=== PATIENT | female | born 1960 | race African-American/Black ===

== ENCOUNTER 2018-04-14 11:02 | Emergency (ER) | payer SELFPAY ==
[2018-04-14] MEDS ORDERED: Ketorolac Tromethamine 30 MG/ML VIAL ONE (11:41)
[2018-04-14 12:16] LABS: Bilirubin Negative (Negative); Blood, Urine Negative (Negative); Clarity CLEAR (Clear); Glucose, Urine (Dipstick) Negative (Negative); Leukocyte Negative (Negative); Nitrite Negative (Negative); Protein, Urine (Dipstick) Negative (Neg-Trace); Specific Gravity, Urine 1.023 (1.002-1.036); Urobilinogen 0.2 mg/dL (0.2-1.0); pH, Urine 6.5 (5.0-9.0)
[2018-04-14 12:19] LABS: #Basophils 0.1 thou/uL (0.0-0.2); #Eosinphils 0.2 thou/uL (0.0-0.7); #Lymphocytes 3.2 thou/uL (1.20-3.40); #Monocytes 0.3 thou/uL (0.11-0.59); #Neutrophils 3.8 thou/uL (1.40-6.50); %Basophils 1.2 % (0.0-1.0); %Eosinophils 2.5 % (0.0-10.0); %Lymphocytes 42.4 % (21.0-51.0); %Monocytes 3.8 % (0.0-10.0); %Neutrophils 50.1 % (42.0-75.0); Hemoglobin 14.4 g/dL (12.0-16.0); Mean Corpuscular HGB CONC 34.2 g/dL (32.0-36.0); Mean Corpuscular Hemoglobin 33.6 pg (27.0-31.0); Mean Corpuscular Volume 98.2 fL (78.0-98.0); Mean Platelet Volume 8.3 fL (7.4-10.4); Platelet Count 183 thou/uL (130-400); Red Blood Cell (RBC) Count 4.28 mill/uL (4.20-5.40); White Blood Cell (WBC) Count 7.5 thou/uL (4.8-10.8)
[2018-04-14 12:39] LABS: ALT (SGPT) 37 U/L (8-55); AST (SGOT) 36 U/L (5-34); Alkaline Phosphatase 106 U/L (40-150); Anion Gap 15 mmol/L (10-20); BUN (Urea Nitrogen) 16 mg/dL (9.8-20.1); Bilirubin, Total 0.3 mg/dL (0.2-1.2); Calc. Creatinine Clearance 0 mL/min (70-130); Calcium 9.3 mg/dL (7.8-10.44); Carbon Dioxide 20 mmol/L (22-29); Chloride 107 mmol/L (98-107); Estimated GFR-MDRD 86; Globulin 2.8 g/dL (2.4-3.5); Glucose 119 mg/dL (70-105); Lipase 17 U/L (8-78); Potassium 3.9 mmol/L (3.5-5.1); Protein, Total 6.8 g/dL (6.0-8.3); Sodium 138 mmol/L (136-145)
--- NOTE | 2018-04-14 13:32 | RAD ---
FRONTAL VIEW CHEST: Date: 04/14/18 COMPARISON: 10/31/16. INDICATION: Left chest pain. FINDINGS: There is no evidence of consolidation, effusion, or discrete pneumothorax. Cardiac silhouette is acce ntuated by portable technique. IMPRESSION: No focal consolidation. POS: [facility]
--- NOTE | 2018-04-14 14:10 | CT ---
NONCONTRAST CT ABDOMEN AND PELVIS: Date: 04/14/18 HISTORY: Left flank pain, right abdominal soreness for 3 days. COMPARISON: Prior noncontrasted CT abdomen and pelvis on 02/13/09, as well as prior postcontrast CT examinations on 06/29/11/ and 08/10/15. FINDINGS: Again noted is fatty infiltration of the liver. The echogenic mass-like structure within the posterio r aspect of the medial segment of the left hepatic lobe is again present and is seen on multiple prio r studies dating back to 2008 and is stable in appearance and likely attributable to area of fatty sp aring. There is linear scarring versus atelectasis at each lung base. Degenerative changes are again seen in the spine. There is pseudoarticulation of the left lateral mas s of L5 with S1. An approximately 2.0 mm nonobstructing inferior pole right renal calculus is identified. No additiona l renal calculus is seen and there is no evidence of a ureteral calculus. The exophytic hyperdense le griselda at the superior pole of the left kidney is again seen and similar in size to study in 2012, but is smaller in size compared to study in 2016. There is a small, stable, hypodense, too small to danial cterize, lesion within the medial aspect superior pole of left kidney with very tiny increased densit y lesion seen in the inferior pole left kidney. There is no hydronephrosis or perinephric fluid colle ction seen. The spleen, pancreas, bilateral adrenal glands, and decompressed urinary bladder demonstrate a grossl y normal nonenhanced CT appearance. A few scattered colonic diverticula are seen in the descending colon. A retrocecal appendix is visualized and normal in caliber. A few colonic diverticula are seen in the ascending colon. There is no free fluid, fluid collection, or lymphadenopathy seen on this nonenhanced CT scan examina tion. A tiny, fat-containing umbilical hernia is present. Vascular calcifications seen in the abdominal aorta involving the iliac arteries. IMPRESSION: 1. Nonobstructing 2.0 mm calculus inferior pole right kidney. No ureteral calculi are seen bilateral ly, and there is no hydronephrosis. 2. Stable Bosniak Type II renal cystic lesion superior pole left kidney with stable subcentimeter hy podense lesion in the medial aspect superior pole left kidney. 3. Fatty infiltration of the liver with mass-like area of fatty sparing in the posterior aspect left hepatic lobe, which has a stable appearance dating back to study in 2008. 4. No CT evidence of appendicitis. POS: [facility]
== END 2018-04-14 13:05 | disposition home or self-care (01) ==
LOC: ERS 11:02
DX: S29.011A Strain of muscle and tendon of front wall of thorax, initial encounter (principal); I10 Essential (primary) hypertension; E78.5 Hyperlipidemia, unspecified; I48.91 Unspecified atrial fibrillation; E11.9 Type 2 diabetes mellitus without complications; Z79.84 Long term (current) use of oral hypoglycemic drugs; F41.9 Anxiety disorder, unspecified; F17.210 Nicotine dependence, cigarettes, uncomplicated; Z79.82 Long term (current) use of aspirin; Z79.899 Other long term (current) drug therapy; X58.XXXA Exposure to other specified factors, initial encounter
CPT/HCPCS: 71045; 74176; 80053; 81003; 83690; 85025; 87086; 96372; J1885

== ENCOUNTER 2018-05-05 09:12 | Emergency (ER) | payer SELFPAY ==
[2018-05-05 11:09] LABS: #Basophils 0.1 thou/uL (0.0-0.2); #Eosinphils 0.2 thou/uL (0.0-0.7); #Monocytes 0.4 thou/uL (0.11-0.59); #Neutrophils 4.4 thou/uL (1.40-6.50); %Eosinophils 2.4 % (0.0-10.0); %Lymphocytes 37.3 % (21.0-51.0); %Monocytes 4.6 % (0.0-10.0); %Neutrophils 54.7 % (42.0-75.0); Hemoglobin 14.5 g/dL (12.0-16.0); Mean Corpuscular HGB CONC 32.3 g/dL (32.0-36.0); Mean Corpuscular Hemoglobin 32.7 pg (27.0-31.0); Mean Platelet Volume 8.6 fL (7.4-10.4); Platelet Count 184 thou/uL (130-400); RBC Distribution Width 12.2 % (11.5-14.5); Red Blood Cell (RBC) Count 4.42 mill/uL (4.20-5.40)
--- NOTE | 2018-05-05 11:34 | RAD ---
SINGLE VIEW OF THE CHEST: COMPARISON: 04/14/2018. HISTORY: Bilateral lower extremity. FINDINGS: Single view of the chest shows a normal sized cardiomediastinal silhouette. There is no evidence of c onsolidation, mass, or pleural effusion. Degenerative changes are seen in the spine. IMPRESSION: No evidence of acute cardiopulmonary disease. POS: [facility]
[2018-05-05 11:40] LABS: ALT (SGPT) 34 U/L (8-55); AST (SGOT) 35 U/L (5-34); Albumin 4.2 g/dL (3.5-5.0); Alkaline Phosphatase 102 U/L (40-150); Anion Gap 11 mmol/L (10-20); BUN (Urea Nitrogen) 11 mg/dL (9.8-20.1); Bilirubin, Total 0.4 mg/dL (0.2-1.2); Calc. Creatinine Clearance 0 mL/min (70-130); Calcium 9.5 mg/dL (7.8-10.44); Carbon Dioxide 30 mmol/L (22-29); Chloride 104 mmol/L (98-107); Estimated GFR-MDRD Greater than 90; Globulin 3.1 g/dL (2.4-3.5); Glucose 110 mg/dL (70-105); Protein, Total 7.3 g/dL (6.0-8.3); Sodium 141 mmol/L (136-145)
--- NOTE | 2018-05-05 12:48 | ULT ---
BILATERAL LOWER EXTREMITY VENOUS ULTRASOUND: HISTORY: Bilateral lower extremity pain and edema. TECHNIQUE: Multiplanar, daniels scale, and color Doppler images were obtained in a bilateral lower extremity venous ultrasound. Spectral analysis of the Doppler waveforms was performed. FINDINGS: The bilateral common femoral veins, profunda femoral veins, superficial femoral veins, and popliteal veins are normal in appearance without visible thrombus. These vessels demonstrate normal compressio n, flow, and augmentation. The posterior tibial veins and greater saphenous veins are also patent. IMPRESSION: No evidence of deep vein thrombosis. POS: [facility]
== END 2018-05-05 13:01 | disposition home or self-care (01) ==
LOC: ERS 09:12
DX: R60.0 Localized edema (principal); I10 Essential (primary) hypertension; I48.91 Unspecified atrial fibrillation; E11.9 Type 2 diabetes mellitus without complications; F41.9 Anxiety disorder, unspecified; F31.9 Bipolar disorder, unspecified; F17.210 Nicotine dependence, cigarettes, uncomplicated; E78.5 Hyperlipidemia, unspecified
CPT/HCPCS: 36415; 71045; 80053; 83880; 85025; 93005; 93970

== ENCOUNTER 2018-12-23 13:47 | Emergency (ER) | payer SELFPAY ==
[2018-12-23 14:26] LABS: #Basophils 0.1 thou/uL (0.0-0.2); #Eosinphils 0.1 thou/uL (0.0-0.7); #Lymphocytes 2.5 thou/uL (1.20-3.40); #Monocytes 0.4 thou/uL (0.11-0.59); #Neutrophils 5.3 thou/uL (1.40-6.50); %Basophils 0.8 % (0.0-1.0); %Eosinophils 1.6 % (0.0-10.0); %Monocytes 4.3 % (0.0-10.0); %Neutrophils 63.4 % (42.0-75.0); Hemoglobin 14.4 g/dL (12.0-16.0); Mean Corpuscular HGB CONC 33.8 g/dL (32.0-36.0); Mean Corpuscular Hemoglobin 33.1 pg (27.0-31.0); Mean Platelet Volume 8.7 fL (7.4-10.4); Platelet Count 182 thou/uL (130-400); RBC Distribution Width 12.1 % (11.5-14.5); Red Blood Cell (RBC) Count 4.34 mill/uL (4.20-5.40); White Blood Cell (WBC) Count 8.3 thou/uL (4.8-10.8)
--- NOTE | 2018-12-23 14:28 | RAD ---
XR Chest 1 View Portable History: Chest pain Comparison: Radiograph May 05, 2018 Findings: Lungs are clear. No pneumothorax or effusion. Cardiac silhouette and mediastinal contours a re within normal limits. No acute osseous abnormality. Impression: No acute intrathoracic abnormality.
[2018-12-23 14:50] LABS: ALT (SGPT) 50 U/L (8-55); AST (SGOT) 87 U/L (5-34); Albumin 4.3 g/dL (3.5-5.0); Alkaline Phosphatase 101 U/L (40-110); Anion Gap 13 mmol/L (10-20); BUN (Urea Nitrogen) 21 mg/dL (9.8-20.1); Bilirubin, Total 0.5 mg/dL (0.2-1.2); Calc. Creatinine Clearance 0 mL/min (70-130); Calcium 9.1 mg/dL (7.8-10.44); Carbon Dioxide 20 mmol/L (22-29); Chloride 107 mmol/L (98-107); Estimated GFR-MDRD 87; Globulin 2.5 g/dL (2.4-3.5); Glucose 216 mg/dL (70-105); Lipase 21 U/L (8-78); Potassium 4.1 mmol/L (3.5-5.1); Protein, Total 6.8 g/dL (6.0-8.3); Sodium 136 mmol/L (136-145)
== END 2018-12-23 16:25 | disposition left against medical advice (07) ==
LOC: ERS 13:47
DX: R07.2 Precordial pain (principal); E78.5 Hyperlipidemia, unspecified; I10 Essential (primary) hypertension; I49.9 Cardiac arrhythmia, unspecified; I48.91 Unspecified atrial fibrillation; E11.9 Type 2 diabetes mellitus without complications; Z79.4 Long term (current) use of insulin; F31.9 Bipolar disorder, unspecified; F41.9 Anxiety disorder, unspecified; F17.210 Nicotine dependence, cigarettes, uncomplicated
CPT/HCPCS: 36415; 71045; 80053; 82550; 83690; 84484; 85025; 93005

== ENCOUNTER 2019-11-18 14:39 | Emergency (ER) | payer SELFPAY ==
[2019-11-18 15:05] LABS: #Basophils 0.1 thou/uL (0.0-0.2); #Eosinphils 0.2 thou/uL (0.0-0.7); #Lymphocytes 3.6 thou/uL (1.20-3.40); #Monocytes 0.4 thou/uL (0.11-0.59); #Neutrophils 5.1 thou/uL (1.40-6.50); %Basophils 1.1 % (0.0-1.0); %Eosinophils 1.7 % (0.0-10.0); %Lymphocytes 38.2 % (21.0-51.0); %Monocytes 4.2 % (0.0-10.0); %Neutrophils 54.7 % (42.0-75.0); Hemoglobin 14.1 g/dL (12.0-16.0); Mean Corpuscular HGB CONC 34.3 g/dL (32.0-36.0); Mean Platelet Volume 8.5 fL (7.4-10.4); Platelet Count 168 thou/uL (130-400); RBC Distribution Width 11.8 % (11.5-14.5); Red Blood Cell (RBC) Count 4.04 mill/uL (4.20-5.40); White Blood Cell (WBC) Count 9.4 thou/uL (4.8-10.8)
--- NOTE | 2019-11-18 15:14 | RAD ---
Chest 2 views: 11/18/2019 COMPARISON: 12/23/2018 HISTORY: Chest pain for 6 weeks FINDINGS: No pneumothorax or pleural fluid. No focal consolidation or alveolar edema. Heart and media stinal contours are stable. Stable multilevel thoracic spine degenerative change. IMPRESSION: No acute findings-stable appearance of the chest.
[2019-11-18 15:32] LABS: ALT (SGPT) 22 U/L (8-55); AST (SGOT) 21 U/L (5-34); Albumin 4.1 g/dL (3.5-5.0); Alkaline Phosphatase 88 U/L (40-110); Anion Gap 13 mmol/L (10-20); BUN (Urea Nitrogen) 28 mg/dL (9.8-20.1); Bilirubin, Total 0.3 mg/dL (0.2-1.2); Calc. Creatinine Clearance 0 mL/min (70-130); Calcium 8.9 mg/dL (7.8-10.44); Carbon Dioxide 22 mmol/L (22-29); Chloride 109 mmol/L (98-107); Estimated GFR-MDRD 64; Globulin 2.3 g/dL (2.4-3.5); Glucose 107 mg/dL (70-105); Potassium 3.9 mmol/L (3.5-5.1); Protein, Total 6.4 g/dL (6.0-8.3); Sodium 140 mmol/L (136-145)
[2019-11-18 19:08] LABS: Troponin I Less than 0.010 ng/mL (< 0.028)
== END 2019-11-18 20:00 | disposition home or self-care (01) ==
LOC: ERS 14:39
DX: R07.89 Other chest pain (principal); E78.5 Hyperlipidemia, unspecified; I10 Essential (primary) hypertension; I48.91 Unspecified atrial fibrillation; E11.9 Type 2 diabetes mellitus without complications; I49.3 Ventricular premature depolarization; F41.9 Anxiety disorder, unspecified; F17.210 Nicotine dependence, cigarettes, uncomplicated; Z79.84 Long term (current) use of oral hypoglycemic drugs
CPT/HCPCS: 36415; 71046; 80053; 84484; 85025; 93005

== ENCOUNTER 2020-03-03 14:33 | Observation (INO) | payer SELFPAY ==
[~2020-03-03 14:33] MED LIST: Iopamidol-370 76% 500 ML 1 ML ONE
--- NOTE | 2020-03-03 15:40 | RAD ---
Chest one view HISTORY: Cough. COMPARISON: 11/18/2019. FINDINGS: Cardiac silhouette and pulmonary vasculature are unremarkable. Mediastinum is midline. No confluent airspace consolidation or evidence of pneumothorax. Degenerative changes of the shoulders. IMPRESSION : No acute abnormalities are demonstrated.
[2020-03-03] MEDS ORDERED: Ketorolac Tromethamine 30 MG/ML VIAL ONE (15:48)
[2020-03-03] MEDS ORDERED: Morphine 4 MG/ML VIAL ONE (15:48)
[2020-03-03] MEDS ORDERED: Aspirin Chewable 81 MG TAB ONE (15:48)
[2020-03-03 16:17] LABS: #Basophils 0.1 thou/uL (0.0-0.2); #Eosinphils 0.5 thou/uL (0.0-0.7); #Lymphocytes 3.7 thou/uL (1.20-3.40); #Monocytes 0.3 thou/uL (0.11-0.59); #Neutrophils 4.1 thou/uL (1.40-6.50); %Basophils 1.6 % (0.0-1.0); %Eosinophils 5.5 % (0.0-10.0); %Lymphocytes 42.4 % (21.0-51.0); %Monocytes 3.8 % (0.0-10.0); %Neutrophils 46.8 % (42.0-75.0); Hemoglobin 15.1 g/dL (12.0-16.0); Mean Corpuscular HGB CONC 33.9 g/dL (32.0-36.0); Mean Corpuscular Hemoglobin 34.8 pg (27.0-31.0); Mean Platelet Volume 8.8 fL (7.4-10.4); Platelet Count 151 thou/uL (130-400); RBC Distribution Width 11.6 % (11.5-14.5); Red Blood Cell (RBC) Count 4.34 mill/uL (4.20-5.40); White Blood Cell (WBC) Count 8.8 thou/uL (4.8-10.8)
[2020-03-03 16:40] LABS: ALT (SGPT) 14 U/L (8-55); AST (SGOT) 16 U/L (5-34); Albumin 4.3 g/dL (3.5-5.0); Alkaline Phosphatase 90 U/L (40-110); Anion Gap 11 mmol/L (10-20); BUN (Urea Nitrogen) 21 mg/dL (9.8-20.1); Bilirubin, Total 0.2 mg/dL (0.2-1.2); Calc. Creatinine Clearance 0 mL/min (70-130); Carbon Dioxide 26 mmol/L (22-29); Chloride 105 mmol/L (98-107); Globulin 2.9 g/dL (2.4-3.5); Glucose 93 mg/dL (70-105); Lipase 19 U/L (8-78); Magnesium 1.9 mg/dL (1.6-2.6); Protein, Total 7.2 g/dL (6.0-8.3); Sodium 138 mmol/L (136-145)
[2020-03-03 16:40] LABS: Bilirubin Negative (Negative); Blood, Urine Negative (Negative); Clarity Clear (Clear); Glucose, Urine (Dipstick) Normal (Negative); Ketone, Urine Negative (Negative); Leukocyte Negative Leu/uL (Negative); Nitrite Negative (Negative); Protein, Urine (Dipstick) Negative (Neg-Trace); Specific Gravity, Urine 1.021 (1.002-1.036); Urobilinogen Normal mg/dL (Less than 2); pH, Urine 7.5 (5.0-9.0)
--- NOTE | 2020-03-03 18:15 | CT ---
CT PULMONARY ANGIOGRAM WITH IV CONTRAST AND 3D MIP RECONSTRUCTIONS: 03/03/20 PROVIDED CLINICAL HISTORY: Chest pain. FINDINGS: There is no evidence for central or segmental pulmonary embolus. The lungs are free of significant op acity. No pleural fluid or pneumothorax apparent. Visualized portions of the upper abdomen demonstrat e no acute abnormality. The osseous structures demonstrate no concerning lytic or blastic lesions. IMPRESSION: No evidence for central or segmental pulmonary embolus. POS: [facility]
[2020-03-03] MEDS ORDERED: HumaLOG 300 UNITS/3 ML VIAL SC PRN ×2 (19:08)
[2020-03-03] MEDS ORDERED: Acetaminophen 500 MG TAB PO PRN (19:08)
[2020-03-03] MEDS ORDERED: Cepastat Lozenges 1 LOZ PO PRN (19:08)
[2020-03-03] MEDS ORDERED: Diabetic Tussin 200 MG/10 ML UDCUP PO PRN (19:08)
[2020-03-03] MEDS ORDERED: Dextrose 5% in Water 1,000 ML IV PRN (19:08)
[2020-03-03] MEDS ORDERED: Melatonin 3 MG TAB PO PRN (19:08)
[2020-03-03] MEDS ORDERED: Dextrose 50% Abboject 50 ML SYRINGE SLOW IVP PRN (19:08)
[2020-03-03] MEDS ORDERED: Sodium Chloride 0.9% 1,000 ML IV SCH (19:15)
[2020-03-03 19:32] LABS: SARS-CoV-2 NAA Rapid Test Not Detected (NotDetected)
[2020-03-03 19:33] LABS: Troponin I Less than 0.010 ng/mL (< 0.028)
--- NOTE | 2020-03-03 20:41 | PDOC.HHP ---
Hospitalist HPI - History of Present Illness History of Present Illness: ADMISSION DATE: 03/03/2020 TIME OF ASSESSMENT: 1814 PRIMARY CARE PHYSICIAN:Felton CHIEF COMPLAINT: Chest pain HPI: Patient is a 60-year-old female with past medical history significant for hyperlipidemia, hypertension, diabetes mellitus type 2. She presents to the ED today for an ongoing cough and chest pain. She is requesting a Covid swab. She states she has had chest pain midsternal for approximately 4 months now. There is also a related soreness around the area for the past 2 weeks. She states she has had a productive cough for at least a month now. The sputum is clear when she is coughing it up. Denies fever, denies sick contacts. She states that she was seen in the ER for this chest pain in the past but they were unable to tell her what it was and it has been consistent since that time. She does have a history of an abnormal stress test 6 years ago and a normal heart cath 2 years ago. She states that sometimes shortness of breath and nausea will accompany the chest pain but no diaphoresis. Patient denies orthopnea, lightheadedness, edema. ED COURSE: Vital Signs: Blood pressure 110/71, pulse 70, respiratory rate 17, temp 97.6 oral, O2 saturation 100% on room air Patient had EKG, CTA of the chest, chest x-ray, lab work completed in the ER. She was administered 1 L normal saline, Toradol 15 mg IV, morphine 4 mg IV, aspirin 324 mg p.o. PAST MEDICAL HISTORY: Hypertension, hyperlipidemia, diabetes mellitus type 2, anxiety PAST SURGICAL HISTORY: Hysterectomy SOCIAL HISTORY: Patient lives at home with her . She drinks alcohol rarely and denies drug use. She is a pack per day smoker. FAMILY HISTORY: CVA, hypertension, stroke ALLERGIES: No known drug allergies CURRENT MEDICATIONS: Patient unable to recall, will have her son send her med list Hospitalist ROS - Review of Systems Constitutional: reports: other (body aches) Respiratory: reports: cough, sputum (clear) Cardiovascular: reports: chest pain All other systems reviewed; all pertinent +/- noted in HPI/Subj - Exam General Appearance: NAD, awake alert Eye: PERRL ENT: normocephalic atraumatic Neck: supple Heart: RRR, no murmur, no gallops, no rubs, normal peripheral pulses Heart - other findings: very tender to palpation over sternum Respiratory: CTAB, no wheezes, no rales, no ronchi, normal chest expansion Gastrointestinal: soft, non-tender, non-distended, normal bowel sounds Extremities: no cyanosis, no clubbing, no edema Skin: no rashes Neurological: cranial nerve grossly intact Musculoskeletal: normal tone, no muscle wasting Psychiatric: normal affect, normal behavior, A&O x 3 Hospitalist Results - Labs Result Diagrams: 03/03/20 16:04 03/03/20 16:04 Lab results: WBC 8.8 thou/uL (4.8-10.8) 03/03/20 16:04 Hgb 15.1 g/dL (12.0-16.0) 03/03/20 16:04 Hct 44.5 % (36.0-47.0) 03/03/20 16:04 MCV 103.0 fL (78.0-98.0) H 03/03/20 16:04 Plt Count 151 thou/uL (130-400) 03/03/20 16:04 Neutrophils % 46.8 % (42.0-75.0) 03/03/20 16:04 Sodium 138 mmol/L (136-145) 03/03/20 16:04 Potassium 4.0 mmol/L (3.5-5.1) 03/03/20 16:04 Chloride 105 mmol/L (98-107) 03/03/20 16:04 Carbon Dioxide 26 mmol/L (22-29) 03/03/20 16:04 BUN 21 mg/dL (9.8-20.1) H 03/03/20 16:04 Creatinine 1.22 mg/dL (0.6-1.1) H 03/03/20 16:04 Glucose 93 mg/dL (70-105) 03/03/20 16:04 Calcium 9.0 mg/dL (7.8-10.44) 03/03/20 16:04 Total Bilirubin 0.2 mg/dL (0.2-1.2) 03/03/20 16:04 AST 16 U/L (5-34) 03/03/20 16:04 ALT 14 U/L (8-55) 03/03/20 16:04 Alkaline Phosphatase 90 U/L (40-110) 03/03/20 16:04 Troponin I Less than 0.010 ng/mL (< 0.028) 03/03/20 18:59 Serum Total Protein 7.2 g/dL (6.0-8.3) 03/03/20 16:04 Albumin 4.3 g/dL (3.5-5.0) 03/03/20 16:04 Lipase 19 U/L (8-78) 03/03/20 16:04 Urine Ketones Negative mg/dL (Negative) 03/03/20 16:20 Urine Blood Negative (Negative) 03/03/20 16:20 Urine Nitrite Negative (Negative) 03/03/20 16:20 Ur Leukocyte Esterase Negative Karina/uL (Negative) 03/03/20 16:20 - EKG Interpretation EKG: Sinus rhythm 72 bpm No ectopic beats - Radiology Interpretation CT scan - chest Status: report reviewed by me Additional Comment: IMPRESSION: No evidence for central or segmental pulmonary embolus. Chest x-ray Status: image reviewed by me, report reviewed by me Additional Comment: IMPRESSION : No acute abnormalities are demonstrated. Hospitalist H&P A/P - Plan Plan: Chest pain rule out ACS Monitor on telemetry Continue to trend troponins Cardiac stress test in a.m. As needed analgesics available FLP, TSH, and magnesium in a.m. Cough Await Covid swab As needed antitussives available Acute kidney injury Continue IV fluids Recheck labs in a.m. Hypertension Vital signs every 4 hours Restart home medications once reconciled Diabetes mellitus type 2 Monitor Accu-Cheks AC at bedtime Mild sliding scale insulin VTE prophylaxis in place with SCDs CODE STATUS: Full Surrogate decision-maker is her children Patient has been discussed with Dr. Rankin
[2020-03-03] MEDS: Ketorolac Tromethamine 30 MG/ML VIAL IVP PRN (21:42)
[2020-03-03 22:40] LABS: Troponin I Less than 0.010 ng/mL (< 0.028)
[2020-03-04] MEDS: Morphine 2 MG/ML VIAL SLOW IVP PRN ×2 (00:08→08:42)
[2020-03-04 00:12] VITALS: BMI 34.0
[2020-03-04] MEDS: Ketorolac Tromethamine 30 MG/ML VIAL IVP PRN (04:29)
[2020-03-04 04:39] LABS: #Basophils 0.1 thou/uL (0.0-0.2); #Eosinphils 0.4 thou/uL (0.0-0.7); #Lymphocytes 3.6 thou/uL (1.20-3.40); #Monocytes 0.5 thou/uL (0.11-0.59); #Neutrophils 3.7 thou/uL (1.40-6.50); %Basophils 1.1 % (0.0-1.0); %Eosinophils 5.3 % (0.0-10.0); %Lymphocytes 43.3 % (21.0-51.0); %Monocytes 5.6 % (0.0-10.0); %Neutrophils 44.7 % (42.0-75.0); Hemoglobin 13.6 g/dL (12.0-16.0); Mean Corpuscular HGB CONC 34.5 g/dL (32.0-36.0); Mean Corpuscular Hemoglobin 34.9 pg (27.0-31.0); Mean Platelet Volume 9.7 fL (7.4-10.4); Platelet Count 130 thou/uL (130-400); RBC Distribution Width 11.6 % (11.5-14.5); Red Blood Cell (RBC) Count 3.89 mill/uL (4.20-5.40); White Blood Cell (WBC) Count 8.4 thou/uL (4.8-10.8)
[2020-03-04 04:40] LABS: Anion Gap 12 mmol/L (10-20); BUN (Urea Nitrogen) 29 mg/dL (9.8-20.1); Calc. Creatinine Clearance 81 mL/min (70-130); Calcium 8.5 mg/dL (7.8-10.44); Carbon Dioxide 22 mmol/L (22-29); Cardiac Risk 2.5 (Less than 4.5); Chloride 112 mmol/L (98-107); Cholesterol 125 mg/dl (< 200 Desired); Glucose 90 mg/dL (70-105); HDL Cholesterol 51 mg/dL (>60 Neg Risk); LDL Cholesterol, Calculated 60 mg/dL; Magnesium 2.1 mg/dL (1.6-2.6); Potassium 4.2 mmol/L (3.5-5.1); Sodium 142 mmol/L (136-145); Triglycerides 69 mg/dL (Less than 150)
[2020-03-04] MEDS ORDERED: Aspirin 325 mg Enteric Coated Tablet PO SCH (09:00)
--- NOTE | 2020-03-04 11:16 | NM ---
Radionucleotide stress only myocardial perfusion scan with CT attenuation correction and SPECT imagin g Left ventricular wall motion evaluation and ejection fraction HISTORY: Chest pain. FINDINGS: Lexiscan protocol. Homogeneous uptake of radiotracer throughout the left ventricular myocar dium. No focal perfusion defect. QGS analysis of gated SPECT images shows no focal wall motion abnormalities. Ejection fraction calcul ated at 58%. IMPRESSION : No evidence of ischemia. Normal LVEF.
[2020-03-04] MEDS ORDERED: Regadenoson 0.4 MG/5 ML SYRINGE ONE (12:38)
[2020-03-04 13:44] VITALS: BP 121/70; TEMP 98.1
--- NOTE | 2020-03-05 18:34 | PDOC.DS.DS ---
Provider - Provider Date of Admission: 03/03/20 17:41 Date of Discharge: 03/04/20 Admitting Provider: Celso Rankin MD Primary Care Physician: Americo Ya MD Course - Hospital Course Hospital Course: This patient is a 52-year-old female who presented to the hospital reporting chest pain. Patient had a history of prior presentations for chest pain. In the past she had had a heart cath some years prior only showing some nonocclusive disease in the distal LAD. She also had a subsequent stress test which showed some fixed defects in the left ventricle but nothing reversible. On this occasion the patient had chest pain that she described as being located in the lower sternal area near the xiphoid. It was very tender to touch. She reported the pain would radiate around her ribs with attempts at movement. She said this had actually been present for several months but she had not discussed it with her PCP at their last visit although it was present at that time. In the emergency department the patient had a negative chest x-ray and negative CTA of the chest. Cardiac enzymes were negative. EKG was nonischemic. Patient was placed in observation. She had telemetry and serial troponins which were all unremarkable. She subsequently underwent a nuclear medicine stress test which was also negative for any reversible ischemia and revealed a normal ejection fraction. On her exam she was very tender to palpation in her area of pain. It was felt that this was more musculoskeletal in nature and she would benefit from some anti-inflammatories. Discussed short-term prednisone for about 3 days and then conversion over to meloxicam. Patient was very amenable to that plan. Resuscitation Status: 03/03/20 19:08 Resuscitation Status Routine Co-Sign Provider: Resuscitation Status: FULL: Full Resuscitation Discussed with: pt - Labs Lab Results: 03/04/20 04:01 03/04/20 04:01 Abnormal Lab Results - Last 48 hrs 03/04/20 04:01: Chloride 112 H, BUN 29 H, Creatinine 1.11 H 03/04/20 04:01: RBC 3.89 L, MCV 101.0 H, MCH 34.9 H, Basophils % 1.1 H, Lymphocytes # 3.6 H - Physical Exam Vitals: Weight Admit Weight 204 lb 9.6 oz Weight 204 lb 9.6 oz Physical Exam: The patient was seen and examined on the day of discharge. Problem - Problem (1) Chest pain Code(s): R07.9 - CHEST PAIN, UNSPECIFIED Status: Acute (2) DM type 2 (diabetes mellitus, type 2) Status: Chronic Qualifiers: Diabetes mellitus technician terminal and repeater insulin use: without technician terminal and repeater use Diabetes mellitus complication status: with unspecified complications (3) Dyslipidemia Code(s): E78.5 - HYPERLIPIDEMIA, UNSPECIFIED Status: Chronic (4) HTN (hypertension) Code(s): I10 - ESSENTIAL (PRIMARY) HYPERTENSION Status: Chronic Qualifiers: Hypertension type: essential hypertension Qualified Code(s): I10 - Essential (primary) hypertension (5) Obesity Code(s): E66.9 - OBESITY, UNSPECIFIED Status: Chronic Qualifiers: Obesity classification: adult class 3 (BMI >= 40) Body mass index: BMI 40.0-44.9 Plan - Discharge Medications Prescriptions: Meloxicam 15 mg PO DAILY #10 tab predniSONE 20 mg PO QA- #3 tab Home Medications: Medication Instructions Recorded Confirmed Type Simvastatin [Zocor] 20 mg PO HS 05/02/13 03/04/20 History Pantoprazole [Protonix] 40 mg PO DAILY #0 tab 08/11/15 03/04/20 Rx Aspirin [Aspirin EC] 81 mg PO DAILY 03/04/20 03/04/20 History BuPROPion XL [Wellbutrin XL] 1 tab PO QAM 03/04/20 03/04/20 History Cyclobenzaprine [Flexeril] 10 mg PO TID 03/04/20 03/04/20 History Lisinopril [Zestril] 10 mg PO DAILY 03/04/20 03/04/20 History Lurasidone HCl [Latuda] 20 mg PO QPM 03/04/20 03/04/20 History Meloxicam 15 mg PO DAILY #10 tab 03/04/20 Rx Mv-Mn/C/Glutamin/Lysin/[id number] 1 tablet PO DAILY 03/04/20 03/04/20 History [Airborne Gummies] PARoxetine HCl [Paroxetine HCl] 20 mg PO QAM 03/04/20 03/04/20 History Topiramate 100 mg PO QPM 03/04/20 03/04/20 History metFORMIN HCl 1,000 mg PO BID-WM 03/04/20 03/04/20 History predniSONE 20 mg PO QAM-WM #3 tab 03/04/20 Rx traZODone HCl [Trazodone HCl] 1.5 tab PO QPM 03/04/20 03/04/20 History Allergies: No Known Drug Allergies Allergy (Verified 05/02/13 16:55) PER ER REPORT - Discharge Instructions Activity:: Activity as Tolerated Nourishment:: No Restrictions - Follow up Plan Referrals: Americo Ya MD [Primary Care Provider] - 7 Days (Call your primary doctor's office for followup within 7 days) Disposition: HOME Quality - Care Measures CORE MEASURES:: N/A
== END 2020-03-04 15:11 | disposition home or self-care (01) ==
LOC: ERS 14:33 → 2NO 17:41
PROVIDERS: ADMIT Internal Medicine; ATTEND Internal Medicine
DX: R07.2 Precordial pain (principal); E11.9 Type 2 diabetes mellitus without complications; E78.5 Hyperlipidemia, unspecified; I10 Essential (primary) hypertension; F41.9 Anxiety disorder, unspecified; F17.210 Nicotine dependence, cigarettes, uncomplicated; N17.9 Acute kidney failure, unspecified; I48.91 Unspecified atrial fibrillation; E66.9 Obesity, unspecified; Z68.34 Body mass index [BMI] 34.0-34.9, adult; Z79.82 Long term (current) use of aspirin; Z79.84 Long term (current) use of oral hypoglycemic drugs; Z79.899 Other long term (current) drug therapy; Z20.822 Contact with and (suspected) exposure to COVID-19
CPT/HCPCS: 0240U; 36415; 36416; 71045; 71275; 78452; 80048; 80053; 80061; 81003; 83690; 83735; 84443; 84484; 85025; 85379; 93005; 93017; 94760; 96374; 96375; 96376; A9500; G0378; J1885; J2270; J2785; Q9967

== ENCOUNTER 2021-07-29 11:13 | Outpatient (CLI) | payer BC | END 2021-07-29 11:14 | disposition home or self-care (01) | LOC: BICMAMMO 11:13 | PROVIDERS: ATTEND Family Medicine | DX: Z12.31 Encounter for screening mammogram for malignant neoplasm of breast (principal); J44.9 Chronic obstructive pulmonary disease, unspecified | CPT/HCPCS: 71046; 77063; 77067 ==

== ENCOUNTER 2022-02-15 11:03 | Emergency (ER) | payer BC, MEDICARE ==
[2022-02-15 12:16] LABS: Bilirubin Negative (Negative); Blood, Urine Negative (Negative); Clarity Clear (Clear); Glucose, Urine (Dipstick) Normal (Negative); Ketone, Urine Negative (Negative); Leukocyte Negative Leu/uL (Negative); Nitrite Negative (Negative); Protein, Urine (Dipstick) Negative (Neg-Trace); Specific Gravity, Urine 1.015 (1.002-1.036); Urobilinogen Normal mg/dL (Less than 2); pH, Urine 5.5 (5.0-9.0)
[2022-02-15 12:32] LABS: SARS-CoV-2 NAA Rapid Test Not Detected (NotDetected)
[2022-02-15] MEDS ORDERED: methylPREDNISolone Sod Succ/PF 125 MG/2 ML VIAL ONE (12:34)
[2022-02-15 12:47] LABS: ALT (SGPT) 36 U/L (8-55); AST (SGOT) 66 U/L (5-34); Albumin 4.1 g/dL (3.5-5.0); Alkaline Phosphatase 96 U/L (40-110); Anion Gap 15 mmol/L (10-20); BUN (Urea Nitrogen) 21 mg/dL (9.8-20.1); Bilirubin, Total 0.4 mg/dL (0.2-1.2); Calc. Creatinine Clearance 0 mL/min (70-130); Calcium 8.9 mg/dL (7.8-10.44); Carbon Dioxide 22 mmol/L (22-29); Estimated GFR 48; Globulin 2.6 g/dL (2.4-3.5); Glucose 125 mg/dL (70-105); Potassium 4.1 mmol/L (3.5-5.1); Protein, Total 6.7 g/dL (6.0-8.3); Sodium 136 mmol/L (136-145)
[2022-02-15 12:48] LABS: Chloride 103 mmol/L (98-107)
[2022-02-15 13:04] LABS: #Eosinphils 0.1 thou/uL (0.0-0.7); #Lymphocytes 0.6 thou/uL (1.20-3.40); #Monocytes 0.5 thou/uL (0.11-0.59); #Neutrophils 4.2 thou/uL (1.40-6.50); %Basophils 0.4 % (0.0-1.0); %Lymphocytes 11.9 % (21.0-51.0); %Monocytes 8.9 % (0.0-10.0); %Neutrophils 76.9 % (42.0-75.0); Hemoglobin 14.1 g/dL (12.0-16.0); MDiff Complete? YES; Mean Corpuscular HGB CONC 34.7 g/dL (32.0-36.0); Mean Corpuscular Hemoglobin 36.3 pg (27.0-31.0); Mean Platelet Volume 8.7 fL (7.4-10.4); Platelet Count 118 10x3/uL (130-400); Platelet Morphology Comment Appears Decreased; RBC Morphology Normal; Small Platelets SLIGHT; White Blood Cell (WBC) Count 5.4 10x3/uL (4.8-10.8)
== END 2022-02-15 13:33 | disposition home or self-care (01) ==
LOC: ERS 11:03
DX: J44.1 Chronic obstructive pulmonary disease with (acute) exacerbation (principal); E11.9 Type 2 diabetes mellitus without complications; I10 Essential (primary) hypertension; E78.5 Hyperlipidemia, unspecified; Z79.84 Long term (current) use of oral hypoglycemic drugs; Z20.822 Contact with and (suspected) exposure to COVID-19
CPT/HCPCS: 36415; 70450; 71045; 80053; 81003; 83605; 85025; 87040; 93005; 94760; 96374; J2930

== ENCOUNTER 2022-02-21 16:39 | Emergency (ER) | payer BC, MEDICARE ==
[2022-02-21] MEDS ORDERED: Acetaminophen 500 MG TAB ONE (17:48)
[2022-02-21 18:10] LABS: Mean Corpuscular HGB CONC 34.8 g/dL (32.0-36.0); Mean Corpuscular Hemoglobin 36.8 pg (27.0-31.0); Mean Platelet Volume 8.5 fL (7.4-10.4); Platelet Count 138 10x3/uL (130-400); Red Blood Cell (RBC) Count 4.09 mill/uL (4.20-5.40); White Blood Cell (WBC) Count 9.7 10x3/uL (4.8-10.8)
[2022-02-21 18:32] LABS: Band 2 % (5-11); Eosinophils 1 % (0-10); Lymphocytes 42 % (21-51); MDiff Complete? YES; Macrocytosis SLIGHT = 6-15 cells (100X) (0-5/hpf); Monocytes 3 % (0-10); Neutrophil 48 % (42-75); Platelet Morphology Comment Appears Adequate; Reactive Lymphocytes 3 % (0-10)
[2022-02-21 18:40] LABS: ALT (SGPT) 33 U/L (8-55); AST (SGOT) 33 U/L (5-34); Alkaline Phosphatase 95 U/L (40-110); Anion Gap 16 mmol/L (10-20); BUN (Urea Nitrogen) 21 mg/dL (9.8-20.1); Bilirubin, Total 0.5 mg/dL (0.2-1.2); Calc. Creatinine Clearance 0 mL/min (70-130); Carbon Dioxide 25 mmol/L (22-29); Chloride 105 mmol/L (98-107); Estimated GFR 54; Globulin 2.3 g/dL (2.4-3.5); Glucose 179 mg/dL (70-105); Potassium 3.4 mmol/L (3.5-5.1); Protein, Total 6.3 g/dL (6.0-8.3); Sodium 143 mmol/L (136-145)
== END 2022-02-21 19:13 | disposition home or self-care (01) ==
LOC: ERS 16:39
DX: S01.512A Laceration without foreign body of oral cavity, initial encounter (principal); S01.511A Laceration without foreign body of lip, initial encounter; J44.1 Chronic obstructive pulmonary disease with (acute) exacerbation; I10 Essential (primary) hypertension; E78.5 Hyperlipidemia, unspecified; E11.9 Type 2 diabetes mellitus without complications; Z79.84 Long term (current) use of oral hypoglycemic drugs; Z79.899 Other long term (current) drug therapy; F17.210 Nicotine dependence, cigarettes, uncomplicated; W19.XXXA Unspecified fall, initial encounter
CPT/HCPCS: 36415; 70486; 80053; 84484; 85025; 85379; 93005

== ENCOUNTER 2022-12-01 12:25 | Outpatient (CLI) | payer MEDICARE | END 2022-12-01 12:26 | disposition home or self-care (01) | LOC: BICCT 12:25 | PROVIDERS: ATTEND Student in an Organized Health Care Education/Training Program | DX: Z12.31 Encounter for screening mammogram for malignant neoplasm of breast (principal); Z12.2 Encounter for screening for malignant neoplasm of respiratory organs; F17.210 Nicotine dependence, cigarettes, uncomplicated | CPT/HCPCS: 71271; 77063; 77067 ==

== ENCOUNTER 2022-12-15 14:37 | Outpatient (CLI) | payer MEDICARE ==
[2022-12-15 16:11] LABS: Anion Gap 13 mmol/L (10-20); BUN (Urea Nitrogen) 11 mg/dL (9.8-20.1); Calc. Creatinine Clearance 0 mL/min (70-130); Calcium 8.5 mg/dL (7.8-10.44); Carbon Dioxide 25 mmol/L (22-29); Chloride 107 mmol/L (98-107); Estimated GFR 72; Glucose 155 mg/dL (70-105); Sodium 141 mmol/L (136-145)
== END 2022-12-15 14:38 | disposition home or self-care (01) ==
LOC: LABBT 14:37
PROVIDERS: ATTEND Neurological Surgery
DX: Z01.818 Encounter for other preprocedural examination (principal); G93.5 Compression of brain
CPT/HCPCS: 80048; 93005; 93010

== ENCOUNTER 2022-12-15 15:00 | Inpatient (IN) | payer MEDICARE ==
[2022-12-15 16:01] VITALS: BMI 37.3
[2022-12-20] MEDS ORDERED: Bupivacaine PF 0.5% 30 ML VIAL ONE (10:46)
[2022-12-20] MEDS ORDERED: EPINEPHrine 1 MG/ML AMP ONE (10:46)
[2022-12-20] MEDS ORDERED: Thrombin 5000 UNITS/5 ML VIAL ONE (10:46)
[2022-12-20] MEDS ORDERED: Fentanyl 250 MCG/5 ML VIAL ONE (10:49)
[2022-12-20] MEDS ORDERED: Dexmedetomidine 200 MCG/2 ML VIAL ONE (10:49)
[2022-12-20] MEDS ORDERED: SUGAMMADEX SODIUM 200 MG/2 ML VIAL ONE (10:49)
[2022-12-20] MEDS ORDERED: CEFAZOLIN 2 GM VIAL ONE (11:18)
[2022-12-20] MEDS ORDERED: CEFAZOLIN 1 GM VIAL ONE (11:18)
[2022-12-20] MEDS ORDERED: Sodium Chloride 0.9% 100 ML ONE (11:18)
[2022-12-20] MEDS ORDERED: Dexamethasone 20 MG/5 ML VIAL ONE (11:38)
[2022-12-20] MEDS ORDERED: Succinylcholine 200 MG/10 ml SYRINGE FS ONE (11:38)
[2022-12-20] MEDS ORDERED: Lidocaine 1% PF 5 ML VIAL ONE (11:38)
[2022-12-20] MEDS ORDERED: Rocuronium Bromide 10 MG/ML (10ML VIAL) ONE (11:38)
[2022-12-20] MEDS ORDERED: ePHEDrine Sulfate 50 MG/10 ML VIAL ONE (11:38)
[2022-12-20] MEDS ORDERED: Ondansetron PF 4 MG/2 ML Vial ONE (11:38)
[2022-12-20] MEDS ORDERED: PROPOFOL 200 MG/20 ML VIAL ONE (11:38)
[2022-12-20] MEDS ORDERED: Morphine 4 MG/ML VIAL SLOW IVP PRN (14:03)
[2022-12-20] MEDS ORDERED: diphenhydrAMINE 50 MG/ML VIAL IVP PRN (14:03)
[2022-12-20] MEDS ORDERED: Morphine 2 MG/ML VIAL SLOW IVP PRN (14:03)
[2022-12-20] MEDS ORDERED: Bisacodyl 10 MG SUPP PR PRN (14:03)
[2022-12-20] MEDS ORDERED: Cyclobenzaprine 10 MG TAB PO PRN (14:03)
[2022-12-20] MEDS ORDERED: Ondansetron PF 4 MG/2 ML Vial IVP PRN (14:03)
[2022-12-20] MEDS ORDERED: fentaNYL 50 mcg/mL 1 mL Vial ONE ×2 (15:03→15:45)
[2022-12-20] MEDS: Sodium Chloride 0.9% 1,000 ML IV SCH (17:44)
[2022-12-20] MEDS: metFORMIN 500 MG TAB PO SCH (17:45)
[2022-12-20] MEDS: Mometasone 100 MCG HFA INHALER (RT USE) INH SCH (18:38)
[2022-12-20] MEDS: Pregabalin 75 MG CAP PO SCH ×2 (20:20→22:21)
[2022-12-20] MEDS: Atorvastatin Calcium 10 MG TAB PO SCH ×2 (20:20→22:21)
[2022-12-20] MEDS: CEFAZOLIN 2 GM in Sodium Chloride 0.9% 100 ML IVPB SCH (20:20)
[2022-12-20] MEDS: Allopurinol 100 MG TAB PO SCH ×2 (20:20→22:21)
[2022-12-20] MEDS: traZODone HCl 150 MG TAB PO SCH ×2 (20:21→22:21)
[2022-12-20] MEDS: Topiramate 100 MG TAB PO SCH ×2 (20:21→22:21)
[2022-12-20] MEDS: Acetaminophen 325 MG TAB PO PRN (21:29)
[2022-12-21] MEDS: Ipratropium/Albuterol 3 ML NEB NEB SCH ×5 (01:09→23:04)
[2022-12-21] MEDS: CEFAZOLIN 2 GM in Sodium Chloride 0.9% 100 ML IVPB SCH (04:53)
[2022-12-21] MEDS: Sodium Chloride 0.9% 1,000 ML IV SCH ×2 (04:54→14:45)
[2022-12-21] MEDS ORDERED: Albuterol HFA (OR) 200 PUFF INH INH SCH (07:00)
[2022-12-21] MEDS: Mometasone 100 MCG HFA INHALER (RT USE) INH SCH ×2 (07:15→18:10)
[2022-12-21] MEDS: predniSONE 20 MG TAB PO SCH (10:09)
[2022-12-21] MEDS: valACYclovir 500 MG TAB PO SCH (10:09)
[2022-12-21] MEDS: Pregabalin 75 MG CAP PO SCH ×2 (10:09→19:52)
[2022-12-21] MEDS: PARoxetine 20 MG TAB PO SCH (10:10)
[2022-12-21] MEDS: Losartan 25 MG TAB PO SCH (10:10)
[2022-12-21] MEDS: Lisinopril 10 MG TAB PO SCH (10:10)
[2022-12-21] MEDS: Allopurinol 100 MG TAB PO SCH ×2 (10:11→19:53)
[2022-12-21] MEDS: metFORMIN 500 MG TAB PO SCH ×2 (10:11→16:52)
[2022-12-21 10:19] LABS: #Monocytes 0.5 thou/uL (0.11-0.59); #Neutrophils 7.5 thou/uL (1.40-6.50); %Basophils 0.2 % (0.0-1.0); %Eosinophils 0.4 % (0.0-10.0); %Lymphocytes 19.5 % (21.0-51.0); %Monocytes 4.5 % (0.0-10.0); %Neutrophils 75.1 % (42.0-75.0); Hematocrit 39.5 % (36.0-47.0); Hemoglobin 13.1 g/dL (12.0-16.0); Mean Corpuscular HGB CONC 33.2 g/dL (32.0-36.0); Mean Corpuscular Hemoglobin 34.9 pg (27.0-31.0); Mean Corpuscular Volume 105.3 fl (78.0-98.0); Mean Platelet Volume 10.2 fL (7.4-10.4); Platelet Count 128 10x3/uL (130-400); RBC Distribution Width 13.2 % (11.5-14.5); Red Blood Cell (RBC) Count 3.75 mill/uL (4.20-5.40)
[2022-12-21 10:39] LABS: Anion Gap 11 mmol/L (10-20); BUN (Urea Nitrogen) 12 mg/dL (9.8-20.1); Calc. Creatinine Clearance 128 mL/min (70-130); Calcium 8.8 mg/dL (7.8-10.44); Carbon Dioxide 28 mmol/L (22-29); Chloride 105 mmol/L (98-107); Estimated GFR 91; Glucose 125 mg/dL (70-105); Potassium 3.9 mmol/L (3.5-5.1); Sodium 140 mmol/L (136-145)
[2022-12-21] MEDS: Acetaminophen/Codeine 30-300mg Tablet PO PRN ×2 (14:48→22:49)
[2022-12-21] MEDS: traZODone HCl 150 MG TAB PO SCH (19:52)
[2022-12-21] MEDS: Topiramate 100 MG TAB PO SCH (19:53)
[2022-12-21] MEDS: Montelukast Sodium 10 mg Tablet PO SCH (19:53)
[2022-12-21] MEDS: Atorvastatin Calcium 10 MG TAB PO SCH (19:53)
[2022-12-22] MEDS: Acetaminophen/Codeine 30-300mg Tablet PO PRN (04:46)
[2022-12-22] MEDS: Sodium Chloride 0.9% 1,000 ML IV SCH ×2 (06:30→19:50)
[2022-12-22] MEDS: Mometasone 100 MCG HFA INHALER (RT USE) INH SCH ×2 (08:18→18:18)
[2022-12-22] MEDS: Ipratropium/Albuterol 3 ML NEB NEB SCH ×4 (08:22→22:09)
[2022-12-22] MEDS ORDERED: Losartan 25 MG TAB PO SCH (09:30)
[2022-12-22] MEDS ORDERED: PARoxetine 20 MG TAB PO SCH (09:30)
[2022-12-22] MEDS ORDERED: predniSONE 20 MG TAB PO SCH (09:30)
[2022-12-22] MEDS ORDERED: valACYclovir 500 MG TAB PO SCH (09:30)
[2022-12-22] MEDS ORDERED: metFORMIN 500 MG TAB PO SCH (09:30)
[2022-12-22] MEDS ORDERED: Lisinopril 10 MG TAB PO SCH (09:30)
[2022-12-22] MEDS ORDERED: Allopurinol 100 MG TAB PO SCH (09:30)
[2022-12-22] MEDS: Lisinopril 10 MG TAB PO SCH (10:05)
[2022-12-22] MEDS: PARoxetine 20 MG TAB PO SCH (10:06)
[2022-12-22] MEDS: Pregabalin 75 MG CAP PO SCH ×2 (10:06→21:11)
[2022-12-22] MEDS: Losartan 25 MG TAB PO SCH (10:06)
[2022-12-22] MEDS: metFORMIN 500 MG TAB PO SCH ×2 (10:07→17:44)
[2022-12-22] MEDS: predniSONE 20 MG TAB PO SCH (10:07)
[2022-12-22] MEDS: valACYclovir 500 MG TAB PO SCH (10:07)
[2022-12-22] MEDS: Allopurinol 100 MG TAB PO SCH ×2 (10:07→20:30)
[2022-12-22] MEDS: Acetaminophen 325 MG TAB PO PRN ×3 (13:45→21:11)
[2022-12-22] MEDS: Montelukast Sodium 10 mg Tablet PO SCH (20:30)
[2022-12-22] MEDS: Topiramate 100 MG TAB PO SCH (20:30)
[2022-12-22] MEDS: Atorvastatin Calcium 10 MG TAB PO SCH (20:30)
[2022-12-22] MEDS: traZODone HCl 150 MG TAB PO SCH (21:07)
[2022-12-23] MEDS: Acetaminophen 325 MG TAB PO PRN ×2 (01:03→09:05)
[2022-12-23] MEDS: traZODone HCl 150 MG TAB PO SCH ×2 (01:04→20:42)
[2022-12-23] MEDS: Mometasone 100 MCG HFA INHALER (RT USE) INH SCH ×2 (07:35→19:42)
[2022-12-23] MEDS: Ipratropium/Albuterol 3 ML NEB NEB SCH ×4 (07:35→23:35)
[2022-12-23 07:57] LABS: Acetaminophen Less than 10 mcg/mL (10.0-30.0); Alcohol Less than 10.0 mg/dL (Less than 10); Salicylate Less than 8.0 mg/dL (15.0-30.0)
[2022-12-23] MEDS: predniSONE 20 MG TAB PO SCH (09:03)
[2022-12-23] MEDS: valACYclovir 500 MG TAB PO SCH (09:04)
[2022-12-23] MEDS: Losartan 25 MG TAB PO SCH (09:04)
[2022-12-23] MEDS: PARoxetine 20 MG TAB PO SCH (09:04)
[2022-12-23] MEDS: Lisinopril 10 MG TAB PO SCH (09:05)
[2022-12-23] MEDS: Allopurinol 100 MG TAB PO SCH ×2 (09:05→20:42)
[2022-12-23] MEDS: metFORMIN 500 MG TAB PO SCH ×2 (09:05→16:09)
[2022-12-23] MEDS: Pregabalin 75 MG CAP PO SCH ×2 (09:05→20:44)
[2022-12-23 09:38] LABS: Amphetamine Not Detected (NotDetected); Barbiturates Screen Not Detected (NotDetected); Benzodiazepine Screen Not Detected (NotDetected); Cocaine Metabolite Screen Not Detected (NotDetected); Methadone Not Detected (NotDetected); Methamphetamine Not Detected (NotDetected); Opiate Screen Detected (NotDetected); Oxycodone Screen Not Detected (NotDetected); Phencyclidine (PCP) Not Detected (NotDetected); THC/Cannabinoid Screen Not Detected (NotDetected); Tricyclic Screen Not Detected (NotDetected)
[2022-12-23] MEDS: Sodium Chloride 0.9% 1,000 ML IV SCH ×2 (10:21→22:43)
[2022-12-23] MEDS: Acetaminophen/Codeine 30-300mg Tablet PO PRN ×2 (18:20→22:08)
[2022-12-23] MEDS: Montelukast Sodium 10 mg Tablet PO SCH (20:42)
[2022-12-23] MEDS: Atorvastatin Calcium 10 MG TAB PO SCH (20:42)
[2022-12-23] MEDS: Topiramate 100 MG TAB PO SCH (20:43)
[2022-12-24] MEDS: Acetaminophen/Codeine 30-300mg Tablet PO PRN (04:44)
[2022-12-24] MEDS: Mometasone 100 MCG HFA INHALER (RT USE) INH SCH (06:54)
[2022-12-24] MEDS: Ipratropium/Albuterol 3 ML NEB NEB SCH (06:54)
[2022-12-24 07:34] VITALS: TEMP 98.9
[2022-12-24] MEDS: metFORMIN 500 MG TAB PO SCH (08:39)
[2022-12-24] MEDS: Acetaminophen 325 MG TAB PO PRN (08:39)
[2022-12-24] MEDS: PARoxetine 20 MG TAB PO SCH (08:40)
[2022-12-24] MEDS: Lisinopril 10 MG TAB PO SCH (08:40)
[2022-12-24] MEDS: valACYclovir 500 MG TAB PO SCH (08:40)
[2022-12-24] MEDS: predniSONE 20 MG TAB PO SCH (08:40)
[2022-12-24] MEDS: Pregabalin 75 MG CAP PO SCH (08:41)
[2022-12-24] MEDS: Allopurinol 100 MG TAB PO SCH (08:41)
[2022-12-24] MEDS: Losartan 25 MG TAB PO SCH (08:42)
[2022-12-24 08:45] VITALS: BP 110/72
== END 2022-12-24 09:36 | disposition home or self-care (01) | DRG 27 ==
LOC: SURG A 12-20 07:10 → INTOOBSV 12-20 07:10 → SURG B 12-20 16:55 → OBSVTOIN 12-22 15:36
PROVIDERS: ADMIT Neurological Surgery; ATTEND Neurological Surgery
PROC: 00BC0ZZ Excision of Cerebellum, Open Approach (ICD-10-PCS; principal; 2022-12-20)
DX: G93.5 Compression of brain (principal); E78.5 Hyperlipidemia, unspecified; E11.9 Type 2 diabetes mellitus without complications; F41.9 Anxiety disorder, unspecified; G89.29 Other chronic pain; I10 Essential (primary) hypertension; Z79.899 Other long term (current) drug therapy; Z90.710 Acquired absence of both cervix and uterus
CPT/HCPCS: 36415; 36416; 70450; 80048; 80306; 80307; 85025; 94640; J0171; J0690; J1100; J2272; J2405; J2704; J3010; J3490; J7050; J7512; J7620; S0020

== ENCOUNTER 2023-01-08 15:51 | Emergency (ER) | payer MEDICARE ==
[~2023-01-08 15:51] MED LIST changes: -Iopamidol-370 76% 500 ML 1 ML ONE; +Iopamidol-370 76% 500 ML MDV (1 ML CHARGE) ONE
[2023-01-08] MEDS ORDERED: Morphine 4 MG/ML VIAL ONE ×2 (16:37→17:01)
[2023-01-08 16:47] LABS: #Basophils 0.1 thou/uL (0.0-0.2); #Eosinphils 0.1 thou/uL (0.0-0.7); #Monocytes 0.4 thou/uL (0.11-0.59); #Neutrophils 7.1 thou/uL (1.40-6.50); %Basophils 0.6 % (0.0-1.0); %Eosinophils 0.7 % (0.0-10.0); %Lymphocytes 24.1 % (21.0-51.0); %Monocytes 3.9 % (0.0-10.0); %Neutrophils 70.3 % (42.0-75.0); Hematocrit 38.9 % (36.0-47.0); Hemoglobin 13.1 g/dL (12.0-16.0); Mean Corpuscular HGB CONC 33.7 g/dL (32.0-36.0); Mean Corpuscular Hemoglobin 34.8 pg (27.0-31.0); Mean Corpuscular Volume 103.5 fl (78.0-98.0); Mean Platelet Volume 10.2 fL (7.4-10.4); Platelet Count 166 10x3/uL (130-400); Red Blood Cell (RBC) Count 3.76 mill/uL (4.20-5.40); White Blood Cell (WBC) Count 10.1 10x3/uL (4.8-10.8)
[2023-01-08] MEDS ORDERED: Ondansetron PF 4 MG/2 ML Vial ONE (17:01)
[2023-01-08 17:10] LABS: ALT (SGPT) 22 U/L (8-55); AST (SGOT) 24 U/L (5-34); Albumin 4.1 g/dL (3.4-4.8); Alkaline Phosphatase 93 U/L (40-110); Anion Gap 14 mmol/L (10-20); BUN (Urea Nitrogen) 14 mg/dL (9.8-20.1); Bilirubin, Total 0.4 mg/dL (0.2-1.2); Calc. Creatinine Clearance 0 mL/min (70-130); Calcium 9.2 mg/dL (7.8-10.44); Carbon Dioxide 25 mmol/L (23-31); Chloride 104 mmol/L (98-107); Estimated GFR 80; Globulin 2.1 g/dL (2.4-3.5); Glucose 129 mg/dL (80-115); Potassium 3.7 mmol/L (3.5-5.1); Protein, Total 6.2 g/dL (5.8-8.1); Sodium 139 mmol/L (136-145)
[2023-01-08] MEDS ORDERED: diphenhydrAMINE 50 MG/ML VIAL ONE (17:19)
[2023-01-08] MEDS ORDERED: Metoclopramide HCl 10 MG/2 ML VIAL ONE (17:20)
[2023-01-08] MEDS ORDERED: Dexamethasone 10 MG/ML VIAL ONE (17:54)
== END 2023-01-08 18:55 | disposition home or self-care (01) ==
LOC: ERS 15:51
DX: L76.34 Postprocedural seroma of skin and subcutaneous tissue following other procedure (principal); I10 Essential (primary) hypertension; I48.91 Unspecified atrial fibrillation; E11.9 Type 2 diabetes mellitus without complications; Z79.84 Long term (current) use of oral hypoglycemic drugs; Z79.899 Other long term (current) drug therapy
CPT/HCPCS: 36415; 70450; 70492; 80053; 85025; 96365; 96375; J1100; J1200; J2270; J2405; J2765; Q9967